=== PATIENT | female | born 1955 | race Caucasian/White ===

== ENCOUNTER → 2017-09-18 | Outpatient (CLI) | payer MEDICARE ==
[~2017-09-18] MED LIST: AMITRIPTYLINE H50 M1 PO; ASPIRIN E.C. 8181 MG PO; ATIVAN 1MG T1 MG/TAB PO; ATIVAN2 MG PO; BACTROBAN 22GM22 GM TP; BRINTELLIX10 PO; BYSTOLIC20 MG PO; CELEXA40 MG PO; EDARBI80 MG PO; FOLIC ACID 11 MG/TA1 PO; MICARDIS80 MG PO; ROXICODONE15 MG PO; SONATA 10MG10 MG PO; THERAGRAN TAB1 UDTAB PO; TYLENOL 325MG325 MG PO; UNABLE; VITAMIN B-100 MG/TAB PO
== END ==
LOC: COL.RAD 09-17 09:45
DX: M47.816 Spondylosis without myelopathy or radiculopathy, lumbar region (principal); Q76.49 Other congenital malformations of spine, not associated with scoliosis; G89.29 Other chronic pain

== ENCOUNTER → 2017-10-17 | Outpatient (CLI) | payer MEDICARE ==
[~2017-10-17] VITALS: Ht 167.6 cm; Wt 61.4 kg
[~2017-10-17] MED LIST changes: +ASPIRIN 81M81 MG/TA2 PO; +COZAAR100 MG PO; +KLONOPIN 1MG1 MG PO; +LASIX 20MG TABL20 MG PO; +NORVASC 5MG5 MG/TAB PO; +PAMELOR 25MG25 MG PO; +SEROQUEL 2525 MG/TAB PO; +ZANAFLEX CAPSULE4 MG PO; +ZOVIRAX800 MG PO; +ZYLOPRIM 300MG300 MG PO
== END ==
LOC: COL.RAD 06:49
DX: Z01.89 Encounter for other specified special examinations (principal)

== ENCOUNTER → 2017-10-28 | Outpatient (CLI) | payer MEDICARE | LOC: MHCPAIN 08:19 | DX: G89.29 Other chronic pain (principal); M47.817 Spondylosis without myelopathy or radiculopathy, lumbosacral region; M53.3 Sacrococcygeal disorders, not elsewhere classified | CPT/HCPCS: G0463 ==

== ENCOUNTER → 2017-10-30 | Outpatient (CLI) | payer MEDICARE | LOC: MHCPAIN 13:10 | DX: M47.817 Spondylosis without myelopathy or radiculopathy, lumbosacral region (principal) ==

== ENCOUNTER → 2017-11-03 | Outpatient (CLI) | payer MEDICARE | LOC: MHCPAIN 08:02 | DX: G89.29 Other chronic pain (principal); M47.817 Spondylosis without myelopathy or radiculopathy, lumbosacral region; M53.3 Sacrococcygeal disorders, not elsewhere classified | CPT/HCPCS: G0463 ==

== ENCOUNTER → 2017-11-13 | Outpatient (CLI) | payer MEDICARE | LOC: MHCPAIN 12:32 | DX: M47.817 Spondylosis without myelopathy or radiculopathy, lumbosacral region (principal) ==

== ENCOUNTER → 2017-11-18 | Outpatient (CLI) | payer MEDICARE | LOC: MHCPAIN 09:59 | DX: G89.29 Other chronic pain (principal); M47.817 Spondylosis without myelopathy or radiculopathy, lumbosacral region; M54.16 Radiculopathy, lumbar region; M53.3 Sacrococcygeal disorders, not elsewhere classified | CPT/HCPCS: G0463 ==

== ENCOUNTER → 2017-12-18 | Outpatient (CLI) | payer MEDICARE | LOC: MHCPAIN 08:12 | DX: M47.817 Spondylosis without myelopathy or radiculopathy, lumbosacral region (principal); M12.88 Other specific arthropathies, not elsewhere classified, other specified site; Q76.49 Other congenital malformations of spine, not associated with scoliosis | CPT/HCPCS: J1100; J2250; J3010 ==

== ENCOUNTER → 2018-01-15 | Outpatient (CLI) | payer MEDICARE | LOC: MHCPAIN 08:26 | DX: Z53.8 Procedure and treatment not carried out for other reasons (principal) ==

== ENCOUNTER → 2018-01-28 | Outpatient (CLI) | payer MEDICARE | LOC: MHCPAIN 09:38 | DX: G89.29 Other chronic pain (principal); M47.817 Spondylosis without myelopathy or radiculopathy, lumbosacral region; M53.3 Sacrococcygeal disorders, not elsewhere classified | CPT/HCPCS: G0463 ==

== ENCOUNTER 2018-02-11 08:21 | Emergency (ER) | payer MEDICARE ==
[~2018-02-11] VITALS: Ht 162.6 cm; Wt 61.4 kg
[2018-02-11 08:24] VITALS: TEMP 98.3
[2018-02-11 09:35] LABS: BASO % 0.4 % (0.0-2.0); EOS # 0.1 (0.0-0.7); GRAN # 7.8 (1.4-6.5); GRAN % 74.4 % (42.2-75.2); HEMATOCRIT 39.5 % (37.0-47.0); HEMOGLOBIN 13.6 g/dl (12.5-16.0); LYMPH # 1.8 (1.2-3.4); LYMPH % 17.3 % (20.0-51.0); MEAN CELL VOLUME 83 fl (80.0-100.0); MEAN CORPUSCULAR HEMOGLOBIN 29 pg (27.0-31.0); MEAN CORPUSCULAR HGB CONC 34 g/dl (33.0-37.0); MEAN PLATELET VOLUME 10.1 fl (7.4-10.4); MONO # 0.7 (0.1-0.6); MONO % 6.4 % (1.7-9.3); PLATELET COUNT 302 K/mm3 (130-400); RED BLOOD COUNT 4.77 M/mm3 (4.10-5.30); REDCELL DISTRIBUTION WIDTH-CV 14.1 % (11.5-14.5)
[2018-02-11 09:48] LABS: ALANINE AMINOTRANSFERASE 25 U/L (9-52); ALBUMIN 4.6 gm/dL (3.5-5.0); ALKALINE PHOSPHATASE 170 U/L (50-136); ANION GAP 15 mmol/L (7-16); AST,SGOT 34 U/L (15-37); BILIRUBIN,TOTAL 0.8 mg/dL (0.0-1.0); BLOOD UREA NITROGEN 24 mg/dL (7-17); CALCIUM 10.1 mg/dL (8.4-10.2); CARBON DIOXIDE 20 mmol/L (22-30); CHLORIDE 99 mmol/L (98-107); CREATINE KINASE 84 U/L (30-135); CREATININE, serum 1.38 mg/dL (0.52-1.25); GLUCOSE 106 mg/dL (74-106); MAGNESIUM 2.4 mg/dL (1.6-2.3); POTASSIUM 4.1 mmol/L (3.4-5.0); SODIUM 134 mmol/L (137-145); TOTAL PROTEIN 8.4 gm/dL (6.4-8.2)
[2018-02-11 10:07] LABS: TROPONIN-I < 0.012 ng/mL (0.000-0.034)
[2018-02-11] MEDS ORDERED: DIFLUCAN 100MG100 MG PO (10:43)
[2018-02-11 11:05] VITALS: BP 135/73; PULSE 74
== END 2018-02-11 11:08 | disposition home or self-care (01) ==
LOC: COL.ER 08:21
PROVIDERS: Emergency Medicine
DX: T65.91XA Toxic effect of unspecified substance, accidental (unintentional), initial encounter (principal); S93.602A Unspecified sprain of left foot, initial encounter; Z91.81 History of falling; Z79.82 Long term (current) use of aspirin; W01.0XXA Fall on same level from slipping, tripping and stumbling without subsequent striking against object, initial encounter; Y92.009 Unspecified place in unspecified non-institutional (private) residence as the place of occurrence of the external cause
CPT/HCPCS: J1170; J7030

== ENCOUNTER 2018-02-12 09:56 | Emergency (ER) | payer MEDICARE ==
[~2018-02-12] VITALS: Ht 162.6 cm; Wt 61.4 kg
[~2018-02-12 09:56] MED LIST changes: +DIFLUCAN 100MG100 MG PO
[2018-02-12 10:11] VITALS: BP 187/87; TEMP 98.7
[2018-02-12 13:42] VITALS: PULSE 80
== END 2018-02-12 13:44 | disposition home or self-care (01) ==
LOC: COL.ER 09:56
DX: S93.602A Unspecified sprain of left foot, initial encounter (principal); G89.29 Other chronic pain; Z88.6 Allergy status to analgesic agent; Z79.82 Long term (current) use of aspirin; Z87.891 Personal history of nicotine dependence; X58.XXXA Exposure to other specified factors, initial encounter
CPT/HCPCS: J2270

== ENCOUNTER → 2018-02-26 | Outpatient (CLI) | payer MEDICARE | LOC: MHCPAIN 07:28 | DX: M47.817 Spondylosis without myelopathy or radiculopathy, lumbosacral region (principal); M46.96 Unspecified inflammatory spondylopathy, lumbar region | CPT/HCPCS: J1100; J2250; J3010 ==

== ENCOUNTER 2018-04-11 05:26 | Emergency (ER) | payer MEDICARE ==
[~2018-04-11] VITALS: Ht 162.6 cm; Wt 61.4 kg
[~2018-04-11 05:26] MED LIST changes: +ZOVIRAX400 MG PO; -ZOVIRAX800 MG PO
[2018-04-11 05:30] VITALS: BP 106/56; TEMP 97.6
[2018-04-11 06:30] LABS: BASO % 0.6 % (0.0-2.0); EOS # 0.2 (0.0-0.7); EOS % 2.6 % (0-4.0); GRAN # 4.4 (1.4-6.5); GRAN % 63.1 % (42.2-75.2); HEMATOCRIT 40.4 % (37.0-47.0); HEMOGLOBIN 13.6 g/dl (12.5-16.0); LYMPH # 1.9 (1.2-3.4); LYMPH % 27.1 % (20.0-51.0); MEAN CELL VOLUME 85 fl (80.0-100.0); MEAN CORPUSCULAR HEMOGLOBIN 29 pg (27.0-31.0); MEAN CORPUSCULAR HGB CONC 34 g/dl (33.0-37.0); MONO # 0.4 (0.1-0.6); MONO % 6.3 % (1.7-9.3); PLATELET COUNT 277 K/mm3 (130-400); RED BLOOD COUNT 4.73 M/mm3 (4.10-5.30); REDCELL DISTRIBUTION WIDTH-CV 14.3 % (11.5-14.5)
[2018-04-11 06:38] LABS: ALANINE AMINOTRANSFERASE 26 U/L (9-52); ALBUMIN 4.7 gm/dL (3.5-5.0); ALKALINE PHOSPHATASE 178 U/L (50-136); ANION GAP 16 mmol/L (7-16); AST,SGOT 26 U/L (15-37); BILIRUBIN,TOTAL 0.6 mg/dL (0.0-1.0); BLOOD UREA NITROGEN 20 mg/dL (7-17); CALCIUM 9.4 mg/dL (8.4-10.2); CARBON DIOXIDE 22 mmol/L (22-30); CHLORIDE 92 mmol/L (98-107); CREATININE, serum 1.19 mg/dL (0.52-1.25); GLUCOSE 80 mg/dL (74-106); POTASSIUM 4.1 mmol/L (3.4-5.0); SODIUM 130 mmol/L (137-145); TOTAL PROTEIN 7.7 gm/dL (6.4-8.2)
[2018-04-11 06:50] LABS: TROPONIN-I < 0.012 ng/mL (0.000-0.034)
[2018-04-11 07:16] VITALS: PULSE 62
== END 2018-04-11 07:18 | disposition home or self-care (01) ==
LOC: COL.ER 05:26
PROVIDERS: Emergency Medicine
DX: R07.89 Other chest pain (principal); I10 Essential (primary) hypertension; Z98.890 Other specified postprocedural states; Z87.891 Personal history of nicotine dependence; Z79.82 Long term (current) use of aspirin

== ENCOUNTER 2018-04-15 03:45 | Emergency (ER) | payer MEDICARE ==
[~2018-04-15] VITALS: Ht 162.6 cm; Wt 56.8 kg
[2018-04-15 03:49] VITALS: TEMP 97.8
[2018-04-15] MEDS ORDERED: ROBAXIN 50500 MG/TAB PO (04:31)
[2018-04-15] MEDS ORDERED: HYZAAR 12.5 MG-1 TAB PO (04:33)
[2018-04-15] MEDS ORDERED: FOSAMAX 70MG TA70 MG PO (04:35)
[2018-04-15] MEDS ORDERED: LOPRESSOR 225 MG/TAB PO (04:36)
[2018-04-15] MEDS ORDERED: INDOCIN50 MG PO (04:37)
[2018-04-15] MEDS ORDERED: ROXICODONE15 MG PO (04:38)
[2018-04-15] MEDS ORDERED: ZANAFLEX 4MG TAB4 MG PO (04:40)
[2018-04-15] MEDS ORDERED: LEXAPRO20 MG PO (04:41)
[2018-04-15] MEDS ORDERED: MINIPRESS 1M1 MG/CAP PO (04:41)
[2018-04-15 06:53] VITALS: BP 118/79; PULSE 64
== END 2018-04-15 06:55 | disposition home or self-care (01) ==
LOC: COL.ER 03:45
DX: S82.002A Unspecified fracture of left patella, initial encounter for closed fracture (principal); I10 Essential (primary) hypertension; F17.210 Nicotine dependence, cigarettes, uncomplicated; Z91.81 History of falling; Z79.82 Long term (current) use of aspirin; W10.9XXA Fall (on) (from) unspecified stairs and steps, initial encounter; Y92.009 Unspecified place in unspecified non-institutional (private) residence as the place of occurrence of the external cause
CPT/HCPCS: J2270; L1846

== ENCOUNTER → 2018-05-25 | Outpatient (CLI) | payer MEDICARE ==
[~2018-05-25] MED LIST changes: +FOSAMAX 70MG TA70 MG PO; +HYZAAR 12.5 MG-1 TAB PO; +INDOCIN50 MG PO; +LEXAPRO20 MG PO; +LOPRESSOR 225 MG/TAB PO; +MINIPRESS 1M1 MG/CAP PO; +ROBAXIN 50500 MG/TAB PO; +ZANAFLEX 4MG TAB4 MG PO
== END ==
LOC: MHCPAIN 09:12
DX: G89.29 Other chronic pain (principal); M47.817 Spondylosis without myelopathy or radiculopathy, lumbosacral region; M53.3 Sacrococcygeal disorders, not elsewhere classified
CPT/HCPCS: G0463

== ENCOUNTER → 2018-07-06 | Outpatient (CLI) | payer MEDICARE | LOC: MHCPAIN 09:39 | DX: G89.29 Other chronic pain (principal); M47.817 Spondylosis without myelopathy or radiculopathy, lumbosacral region; M53.3 Sacrococcygeal disorders, not elsewhere classified | CPT/HCPCS: G0463 ==

== ENCOUNTER → 2018-07-08 | Outpatient (CLI) | payer MEDICARE | LOC: COL.RAD 09:40 | DX: M47.812 Spondylosis without myelopathy or radiculopathy, cervical region (principal) ==

== ENCOUNTER 2018-07-15 09:18 | Emergency (ER) | payer MEDICARE ==
[~2018-07-15] VITALS: Ht 162.6 cm; Wt 61.4 kg
[2018-07-15 09:25] VITALS: BP 152/93; PULSE 104; TEMP 99.1
== END 2018-07-15 11:05 | disposition home or self-care (01) ==
LOC: COL.ER 09:18
DX: S80.01XA Contusion of right knee, initial encounter (principal); M79.671 Pain in right foot; Z91.81 History of falling; W19.XXXA Unspecified fall, initial encounter

== ENCOUNTER 2018-07-17 07:07 | Emergency (ER) | payer MEDICARE ==
[~2018-07-17] VITALS: Ht 162.6 cm; Wt 61.4 kg
[2018-07-17 07:13] VITALS: BP 138/87; PULSE 92; TEMP 97.7
== END 2018-07-17 07:37 | disposition left against medical advice (07) ==
LOC: COL.ER 07:07
DX: M25.562 Pain in left knee (principal); F17.210 Nicotine dependence, cigarettes, uncomplicated

== ENCOUNTER → 2018-07-20 | Outpatient (CLI) | payer MEDICARE | LOC: MHCPAIN 09:45 | DX: G89.29 Other chronic pain (principal); M47.817 Spondylosis without myelopathy or radiculopathy, lumbosacral region; M53.3 Sacrococcygeal disorders, not elsewhere classified; M50.90 Cervical disc disorder, unspecified, unspecified cervical region; R51 Headache | CPT/HCPCS: G0463 ==

== ENCOUNTER → 2018-08-10 | Outpatient (CLI) | payer MEDICARE | LOC: MHCPAIN 12:03 | DX: M47.817 Spondylosis without myelopathy or radiculopathy, lumbosacral region (principal); M50.90 Cervical disc disorder, unspecified, unspecified cervical region; M54.12 Radiculopathy, cervical region ==

== ENCOUNTER → 2018-08-17 | Outpatient (CLI) | payer MEDICARE | LOC: MHCPAIN 08:04 | DX: G89.29 Other chronic pain (principal); M47.817 Spondylosis without myelopathy or radiculopathy, lumbosacral region; M54.16 Radiculopathy, lumbar region; M53.3 Sacrococcygeal disorders, not elsewhere classified; M50.90 Cervical disc disorder, unspecified, unspecified cervical region; R51 Headache | CPT/HCPCS: G0463 ==

== ENCOUNTER → 2018-08-20 | Outpatient (CLI) | payer MEDICARE | LOC: MHCPAIN 13:43 | DX: M47.812 Spondylosis without myelopathy or radiculopathy, cervical region (principal); M54.12 Radiculopathy, cervical region ==

== ENCOUNTER → 2019-01-04 | Outpatient (CLI) | payer MEDICARE | LOC: MHCPAIN 09:52 | DX: G89.29 Other chronic pain (principal); M47.812 Spondylosis without myelopathy or radiculopathy, cervical region | CPT/HCPCS: G0463 ==

== ENCOUNTER → 2019-04-20 | Outpatient (CLI) | payer MEDICARE | LOC: MHCPAIN 09:15 | DX: G89.29 Other chronic pain (principal); M47.812 Spondylosis without myelopathy or radiculopathy, cervical region | CPT/HCPCS: G0463 ==

== ENCOUNTER → 2019-05-20 | Outpatient (CLI) | payer MEDICARE | LOC: MHCPAIN 08:32 | DX: M54.12 Radiculopathy, cervical region (principal); M47.812 Spondylosis without myelopathy or radiculopathy, cervical region | CPT/HCPCS: J1100; J2250; J3010 ==

== ENCOUNTER → 2021-02-21 | Outpatient (CLI) | payer MEDICARE | LOC: MHCPAIN 08:03 | DX: M47.817 Spondylosis without myelopathy or radiculopathy, lumbosacral region (principal); M53.3 Sacrococcygeal disorders, not elsewhere classified; M54.5 Low back pain | CPT/HCPCS: G0463 ==

== ENCOUNTER → 2021-03-08 | Outpatient (CLI) | payer MEDICARE | LOC: MHCPAIN 10:59 | DX: M47.817 Spondylosis without myelopathy or radiculopathy, lumbosacral region (principal); M54.5 Low back pain; M53.3 Sacrococcygeal disorders, not elsewhere classified ==

== ENCOUNTER → 2021-03-28 | Outpatient (CLI) | payer MEDICARE | LOC: MHCPAIN 09:00 | DX: M47.817 Spondylosis without myelopathy or radiculopathy, lumbosacral region (principal); M54.5 Low back pain; M53.3 Sacrococcygeal disorders, not elsewhere classified | CPT/HCPCS: G0463; J1100; J2250; J3010 ==

== ENCOUNTER → 2021-05-10 | Outpatient (CLI) | payer MEDICARE | LOC: MHCPAIN 10:27 | DX: M47.817 Spondylosis without myelopathy or radiculopathy, lumbosacral region (principal); M53.3 Sacrococcygeal disorders, not elsewhere classified; M54.5 Low back pain | CPT/HCPCS: G0463; J1100; J2250; J3010 ==

== ENCOUNTER → 2021-07-12 | Outpatient (CLI) | payer MEDICARE | LOC: MHCPAIN 09:24 | DX: M54.2 Cervicalgia (principal); M54.50 Low back pain, unspecified; M53.3 Sacrococcygeal disorders, not elsewhere classified; G89.29 Other chronic pain | CPT/HCPCS: G0463 ==